=== PATIENT | male | born 1980 | race Caucasian/White ===

== ENCOUNTER 2018-04-14 18:18 | Emergency (ER) | payer MEDICAID ==
[~2018-04-14] VITALS: Ht 170.2 cm; Wt 84.9 kg
[2018-04-14 18:46] LABS: BASOPHILS # (AUTO) 0.04 x10^3/uL (0-0.1); BASOPHILS % (AUTO) 0 % (0-1); EOSINOPHILS # (AUTO) 0.17 x10^3/uL (0-0.4); EOSINOPHILS % (AUTO) 2 % (1-7); LYMPHOCYTES # (AUTO) 2.79 x10^3/uL (1-3.4); LYMPHOCYTES % (AUTO) 29 % (22-44); MD NO; MEAN CORPUSCULAR HEMOGLOBIN 30.5 pg (27.5-34.5); MEAN CORPUSCULAR HGB CONC 34.3 g/dL (33.2-36.2); MEAN CORPUSCULAR VOLUME 88.7 fL (81-97); MEAN PLATELET VOLUME 9.1 fL (7.4-10.4); MONOCYTES # (AUTO) 0.89 x10^3/uL (0.2-0.8); MONOCYTES % (AUTO) 9 % (2-9); NEUTROPHILS # (AUTO) 5.61 x10^3/uL (1.8-6.8); NEUTROPHILS % (AUTO) 59 % (42-75); PLATELET COUNT 230 x10^3/uL (130-400); RED BLOOD COUNT 4.93 x10^6/uL (4.38-5.82); RED CELL DISTRIBUTION WIDTH 13.2 % (9.4-14.8)
[2018-04-14 18:56] LABS: ALANINE AMINOTRANSFERASE 74 U/L (12-78); ALBUMIN 4.3 g/dL (3.4-5.0); ANION GAP 8 mmol/L (5-15); CALCIUM 9.4 mg/dL (8.5-10.1); CHLORIDE 105 mmol/L (98-107); CREATININE 0.97 mg/dL (0.7-1.3); SALICYLATE LEVEL 2.5 mg/dL (2.8-20.0)
[2018-04-14 18:58] LABS: ALKALINE PHOSPHATASE 76 U/L (45-117); BILIRUBIN,TOTAL 0.5 mg/dL (0.2-1.0); TOTAL PROTEIN 8.5 g/dL (6.4-8.2)
[2018-04-14 19:48] LABS: AMPHETAMINE SCREEN, URINE Negative (Negative); BARBITURATE SCREEN, URINE Negative (Negative); BENZODIAZEPINE SCREEN, URINE Negative (Negative); CANNABINOID SCREEN, URINE Negative (Negative); COCAINE SCREEN, URINE Negative (Negative); METHADONE SCREEN, URINE Negative (Negative); OPIATE SCREEN, URINE Negative (Negative)
[2018-04-14 23:30] VITALS: BP 141/88
== END 2018-04-14 23:32 | disposition home or self-care (01) ==
LOC: ED 19:31
DX: F32.9 Major depressive disorder, single episode, unspecified (principal)
CPT/HCPCS: 36415; 80053; 80307; 80329; 85025; 99284; G0480

== ENCOUNTER 2018-05-08 15:49 | Emergency (ER) | payer MEDICAID ==
[~2018-05-08] VITALS: Ht 170.2 cm; Wt 86.3 kg
[2018-05-08] MEDS ORDERED: DIAZEPAM 5 MG TABLET ONE (16:20)
[2018-05-08] MEDS ORDERED: KETOROLAC 30 MG/1 ML ONE (16:20)
[2018-05-08] MEDS ORDERED: KETOROLAC 30 MG/1 ML IM ONE (16:30)
[2018-05-08] MEDS ORDERED: DIAZEPAM 5 MG TABLET PO ONE (16:30)
[2018-05-08 16:49] VITALS: BP 126/75
== END 2018-05-08 16:51 | disposition home or self-care (01) ==
LOC: ED 16:45
DX: J00 Acute nasopharyngitis [common cold] (principal); B97.89 Other viral agents as the cause of diseases classified elsewhere; M54.6 Pain in thoracic spine; M62.838 Other muscle spasm
CPT/HCPCS: 96372; 99283; J1885

== ENCOUNTER 2018-06-26 15:40 | Emergency (ER) | payer MEDICAID ==
[~2018-06-26] VITALS: Ht 170.2 cm; Wt 82.0 kg
--- NOTE | 2018-06-26 15:40 | NUR ---
BIB EMS for [facility] since last night, pt describes it as being in the "frontal lobe" denies associated N/V or photophobia. Pt also c/o epigastric abd. pain x 1 hour, no N/V/D. Pt denies having taken any OTC meds [employer].
--- NOTE | 2018-06-26 15:46 | NUR ---
Dr. Ballard at bedside to evaluate pt.
[2018-06-26] MEDS ORDERED: ONDANSETRON 2MG/ML, 2ML IVPush ONE (16:00)
[2018-06-26] MEDS ORDERED: SODIUM CHLORIDE FLUSH 10ML SYR IVF ONE (16:00)
[2018-06-26] MEDS ORDERED: ONDANSETRON 2MG/ML, 2ML ONE (16:06)
--- NOTE | 2018-06-26 16:21 | NUR ---
PIV started, labs drawn, pt medicated per MAR.
[2018-06-26 16:37] LABS: CULTURE INDICATED? NO; MICROSCOPIC NOT IND
[2018-06-26 16:38] LABS: BASOPHILS # (AUTO) 0.01 x10^3/uL (0-0.1); BASOPHILS % (AUTO) 0 % (0-1); EOSINOPHILS # (AUTO) 0.02 x10^3/uL (0-0.4); EOSINOPHILS % (AUTO) 0 % (1-7); LYMPHOCYTES # (AUTO) 0.57 x10^3/uL (1-3.4); LYMPHOCYTES % (AUTO) 11 % (22-44); MD NO; MEAN CORPUSCULAR HEMOGLOBIN 30.6 pg (27.5-34.5); MEAN CORPUSCULAR HGB CONC 34.1 g/dL (33.2-36.2); MEAN CORPUSCULAR VOLUME 89.7 fL (81-97); MEAN PLATELET VOLUME 9.5 fL (7.4-10.4); MONOCYTES % (AUTO) 15 % (2-9); NEUTROPHILS # (AUTO) 3.84 x10^3/uL (1.8-6.8); NEUTROPHILS % (AUTO) 73 % (42-75); PLATELET COUNT 182 x10^3/uL (130-400); RED BLOOD COUNT 4.94 x10^6/uL (4.38-5.82)
[2018-06-26 16:50] LABS: ALBUMIN 4.3 g/dL (3.4-5.0); ANION GAP 7 mmol/L (5-15); CALCIUM 9.2 mg/dL (8.5-10.1); CHLORIDE 105 mmol/L (98-107)
[2018-06-26 16:54] LABS: ALANINE AMINOTRANSFERASE 48 U/L (12-78); ALKALINE PHOSPHATASE 74 U/L (45-117); BILIRUBIN,TOTAL 0.8 mg/dL (0.2-1.0); CREATININE 1.08 mg/dL (0.7-1.3); TOTAL PROTEIN 8.2 g/dL (6.4-8.2)
--- NOTE | 2018-06-26 17:18 | NUR ---
Pt to imaging, with tech, via [facility].
[2018-06-26] MEDS ORDERED: OMNIPAQUE 350 MG/ML, 100ML BOTTLE ONE (17:32)
[2018-06-26] MEDS ORDERED: MORPHINE SULFATE 4 MG/ML, 1ML ONE (17:40)
--- NOTE | 2018-06-26 17:43 | NUR ---
pt medicated per mar.
[2018-06-26] MEDS ORDERED: MORPHINE SULFATE 4 MG/ML, 1ML IVPush PRN (18:00)
[2018-06-26 18:37] VITALS: BP 115/72
--- NOTE | 2018-06-26 18:39 | NUR ---
Patient/Caregiver given discharge instructions and they have confirmed that they understand the instructions. Patient ambulatory with steady gait.
== END 2018-06-26 18:40 | disposition home or self-care (01) ==
LOC: ED 16:04
DX: R10.84 Generalized abdominal pain (principal); R11.0 Nausea; J02.9 Acute pharyngitis, unspecified; R51 Headache
CPT/HCPCS: 36415; 74177; 80053; 81003; 83690; 85025; 96374; 96375; 99284; J2405; Q9967

== ENCOUNTER 2018-09-21 08:23 | Emergency (ER) | payer MEDICAID ==
[~2018-09-21] VITALS: Ht 170.2 cm; Wt 83.5 kg
[2018-09-21 08:26] VITALS: BP 117/80
[2018-09-21] MEDS ORDERED: ACETAMINOPHEN 500 MG TABLET ONE (08:45)
[2018-09-21] MEDS ORDERED: ONDANSETRON ODT 4 MG ONE (08:45)
--- NOTE | 2018-09-21 08:48 | NUR ---
PT PRESENTS TO ED WITH DIARRHEA AND NAUSEA SINCE LAST NIGHT, PT PLACED ON MONITOR, URINAL GIVEN FOR UA SAMPLE. PT STATES HE IS INCONTIENET AT BASELINE AND DOES NOT KNOW WHY, PT GIVEN NEW DIAPER HE STATES HIS IS WET. PT MEDICATED WITH ZOFRAN AND TYLENOL
[2018-09-21 08:57] LABS: BASOPHILS # (AUTO) 0.01 x10^3/uL (0-0.1); BASOPHILS % (AUTO) 0 % (0-1); EOSINOPHILS # (AUTO) 0.17 x10^3/uL (0-0.4); EOSINOPHILS % (AUTO) 2 % (1-7); LYMPHOCYTES # (AUTO) 1.13 x10^3/uL (1-3.4); LYMPHOCYTES % (AUTO) 16 % (22-44); MD NO; MEAN CORPUSCULAR HEMOGLOBIN 29.9 pg (27.5-34.5); MEAN CORPUSCULAR HGB CONC 33.3 g/dL (33.2-36.2); MEAN CORPUSCULAR VOLUME 89.8 fL (81-97); MONOCYTES # (AUTO) 0.62 x10^3/uL (0.2-0.8); MONOCYTES % (AUTO) 9 % (2-9); NEUTROPHILS # (AUTO) 5.38 x10^3/uL (1.8-6.8); NEUTROPHILS % (AUTO) 74 % (42-75); PLATELET COUNT 208 x10^3/uL (130-400); RED BLOOD COUNT 4.62 x10^6/uL (4.38-5.82); RED CELL DISTRIBUTION WIDTH 13.1 % (9.4-14.8)
[2018-09-21] MEDS ORDERED: ACETAMINOPHEN 500 MG TABLET PO ONE (09:00)
[2018-09-21] MEDS ORDERED: ONDANSETRON ODT 4 MG PO ONE (09:00)
[2018-09-21 09:09] LABS: ALANINE AMINOTRANSFERASE 39 U/L (12-78); ALBUMIN 3.9 g/dL (3.4-5.0); ANION GAP 7 mmol/L (5-15); CALCIUM 8.3 mg/dL (8.5-10.1); CHLORIDE 110 mmol/L (98-107); CREATININE 0.89 mg/dL (0.7-1.3)
[2018-09-21 09:11] LABS: ALKALINE PHOSPHATASE 48 U/L (45-117); BILIRUBIN,TOTAL 0.5 mg/dL (0.2-1.0)
--- NOTE | 2018-09-21 09:18 | NUR ---
URINE SENT TO LAB
[2018-09-21 09:43] LABS: MICROSCOPIC NOT IND
[2018-09-21 09:48] LABS: CULTURE INDICATED? NO
== END 2018-09-21 10:19 | disposition home or self-care (01) ==
LOC: ED 09:26
DX: B34.9 Viral infection, unspecified (principal); R10.84 Generalized abdominal pain; F32.9 Major depressive disorder, single episode, unspecified
CPT/HCPCS: 36415; 80053; 81003; 83690; 85025; 99283; Q0162